=== PATIENT | male | born 1995 | race Caucasian/White ===

== ENCOUNTER 2021-08-24 13:45 | Emergency (ER) | payer MEDICAID, SELFPAY ==
[2021-08-24 13:56] VITALS: BP 132/88; PULSE 100; RESP 16; TEMP 36.4; O2SAT 98; BMI 25.8
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
== END 2021-08-24 15:42 | disposition home or self-care (01) ==
PROVIDERS: Emergency Provider Nurse Practitioner Family; Family Provider Nurse Practitioner; PCP Nurse Practitioner
DX: S16.1XXA Strain of muscle, fascia and tendon at neck level, initial encounter (principal); V89.2XXA Person injured in unspecified motor-vehicle accident, traffic, initial encounter
CPT/HCPCS: 72040; 99282